=== PATIENT | female | born 1940 | race Caucasian/White ===

== ENCOUNTER 2021-06-12 10:41 | Day surgery (SDC) | payer OTHER ==
[~2021-06-12] VITALS: Ht 160 cm; Wt 111.1 kg
[~2021-06-12 10:41] MED LIST: ALLOPURINOL 10100 M3 PO; BIOFREEZE118 ML TOP; BIOTENE1000 ML PO; CALCIUM ANTACI PO; CLARITIN10 M3 PO; COLACE100 MG PO; COUGH SYRU100 MG/5 M PO; CREON DR 6,0001 EACH PO; DICLOFENAC SOD100 G1 TOP; HYDROCODON-ACE1 EAC8 PO; KLOR-CON M2020 MEQ PO; LASIX 40 MG TAB40 MG PO; LEVEMIR100 UNIT/1 SUBQ; LIDODERM1 EACH TOP; LIPITOR20 MG PO; MAGNESIUM OXID400 M1 PO; MELATONIN3 M1 PO; METOCLOPRAMIDE 55 M1 PO; METOLAZONE 5 MG5 MG PO; NEURONTIN 400400 M1 PO; NOVOLOG FL100 UNIT/M SUBQ; OZEMPIC1 MG/0.71 SUBQ; POWDERLAX238 GM PER TUBE; PREDNISONE 10 M10 MG PO; PROMETHAZINE12.5 M1 PO; PROTONIX40 M2 PO; SENNA LAX8.6 MG PO; TESSALON PERLE100 MG PO; VITAMIN D350 MC3 PO; WARFARIN SODIUM6 MG PO; ZOFRAN4 MG PO
[2021-06-12 11:59] LABS: INR 0.99; PROTIME 10.8 Seconds (10.5-12.1)
[2021-06-12 12:51] VITALS: BP 156/54
[2021-06-12] MEDS ORDERED: HYDROCODON-ACE1 EAC8 PO (14:33)
[2021-06-12 14:40] VITALS: BP 156/54
--- NOTE | 2021-06-13 11:36 | EKG ---
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
--- NOTE | 2021-06-15 18:06 | PATH ---
[facility] [address] [place] [address] PATHOLOGY RPT PROCEDURE Name: NATALIE MENESES Room #: DEP [facility] M.R.#: [id number] Admission: 06/12/21 Date of : 36 Discharge: 06/12/21 Report #: [id number] Path Case #: [id number] [facility] Accession Number: [id number] . 01 Material submitted: . artery - TEMPORAL ARTERY BIOPSY RIGHT. Modifiers: temporal, right . 01 Clinician provided ICD-10: 00 . 01 Clinical history: . HEADACHE RIGHT TEMPORAL ARTERY . 02 Diagnosis: Artery, right temporal artery, biopsy: - Negative for arteritis. - Negative for giant cell reaction. - Medial and intimal layer calcification. (IUV:cory; 06/15/2021) MBR 06/15/2021 1214 Local . 02 Electronically signed: . Jayna Hampton MD, Pathologist NPI- [id number] . 01 Gross description: . The specimen is received in formalin, labeled "Natalie Meneses, temporal artery biopsy right". It consists of a ornelas, curved, tubular soft tissue fragment measuring 4.5 cm long by 0.2 cm in diameter. The specimen is bisected and entirely submitted for further sectioning by histology in A1. (MRF; 06/12/2021) MFE/MFE 06/12/2021 2110 Local . 02 Pathologist provided ICD-10: R51.9 . 02 CPT . 406123 Specimen Comment: A courtesy copy of this report has been sent to [phone], [phone] Specimen Comment: [phone], Specimen Comment: Report sent to DR. BURNS, DR FAULKNER / DR DEAN Performed at: [address] [id number] MD Alexis Perez MD Phone: [phone] Performed at: [address] [address] PATHOLOGY RPT PROCEDURE Name: CONNORNATALIE Room #: DEP [facility] M.R.#: [id number] Admission: 06/12/21 Date of : 36 Discharge: 06/12/21 Report #: [id number] Path Case #: [id number] [address] [id number] MD Jayna Hampton MD Phone: [phone]
--- NOTE | 2021-06-18 16:28 | O ---
[facility] [place] [address] OPERATIVE REPORT Name: CATY RYAN Room #: DEP [facility]..#: [id number] Admission: 06/12/21 Attend Phys: Rojelio Mcneal MD Discharge: 06/12/21 Date of : 36 Report #: [id number] THIS REPORT FOR: cc: Noemy Ferrer MD, Ammar MD Chu,Rojelio Gordon MD ~ cc: Peterson Gomez MD DATE OF SERVICE: 06/12/2021 PREOPERATIVE DIAGNOSIS: Right headache, rule out right temporal arteritis. POSTOPERATIVE DIAGNOSIS: Right headache, rule out right temporal arteritis. PROCEDURE PERFORMED: Biopsy of right temporal artery, removing 5-inch segment. SURGEON: Rojelio Mcneal M.D. COMPLICATIONS: None. ESTIMATED BLOOD LOSS: 5 mL. ANESTHETIC: Local mixture of 1% lidocaine and 0.25% Marcaine. PROCEDURE NOTE: With the patient in supine position in the operating room, the temporal artery was identified using ultrasound guidance. The skin over the artery was marked. This area was then prepped with ChloraPrep. This was then tailed off in sterile fashion with local anesthetic mixture of 1% lidocaine 0.25% Marcaine was used to anesthetize the skin and subcutaneous tissue, approximately 10 mL of the solution was used. After anesthetizing the skin and subcutaneous tissue, incision was made over the marked area. The vessel was identified first, and I thought this was the artery, slightly posteriorly located, this turned out to be the vein. The artery was found more anteriorly. The artery was isolated. Vesseloops were placed around the artery for dissection. Artery was followed to the proximal aspect. This was then also followed distally. Incision of about 5 cm was made. The artery was harvested without problem. A 5 cm segment was obtained. The ends of the artery was clipped x 2 with small Hemoclips. Hemostasis obtained. Subcutaneous tissue was brought together with 4-0 PDS. Skin was then closed with 4-0 PDS running subcuticular fashion. Dermabond was applied. The patient tolerated the procedure well. <ELECTRONICALLY SIGNED> By: Rojelio Mcneal MD 06/18/21 1628 15 33 Rojelio Mcneal MD /nt
== END 2021-06-12 15:09 ==
LOC: OR 10:41 → TBA 10:41 → OR 15:07
PROVIDERS: ATTEND Surgery
DX: R51.9 Headache, unspecified (principal); I13.0 Hypertensive heart and chronic kidney disease with heart failure and stage 1 through stage 4 chronic kidney disease, or unspecified chronic kidney disease; N18.30 Chronic kidney disease, stage 3 unspecified; I50.9 Heart failure, unspecified; I48.91 Unspecified atrial fibrillation; E11.22 Type 2 diabetes mellitus with diabetic chronic kidney disease; K21.9 Gastro-esophageal reflux disease without esophagitis; Z98.890 Other specified postprocedural states; Z79.899 Other long term (current) drug therapy; Z20.822 Contact with and (suspected) exposure to COVID-19; Z79.01 Long term (current) use of anticoagulants
CPT/HCPCS: 50010; 50386; 50398; 54118; 56525; 56526; 56805; 70005